=== PATIENT | female | born 1985 | race Caucasian/White ===

== ENCOUNTER → 2016-10-10 | Outpatient (CLI) | payer BC ==
--- NOTE | ~2016-10-10 | US85 ---
[facility] A Service of [facility] [place] & [facility] RADIOLOGY TEXT RESULTS PATIENT: ERMIAS GATICA LOCATION: SNIV : 81 UNIT #: [id number] AGE: [address]: Omar Burgess MD SEX: F ORDER DR: [id number] [address] [address] [id number] MR#: [id number] Acc #: [id number] NAME: ERMIAS GATICA : 1985 SEX: F STUDY DATE/TIME: 10/10/2016 10:38 UNIT: SNIV ROOM: STUDY DESCRIPTION: [facility] [employer] Attending Physician: Omar Burgess M.D. Referring Physician: Omar Burgess M.D. Ordering Physician: Omar Burgess M.D. Primary Care Physician: Omar Burgess M.D. MEDICAL IMAGING REPORT This report is preliminary unless electronic signature is present. EXAM Right lower extremity Doppler venous ultrasound, 10/10/2016 HISTORY Right lower extremity swelling/edema for 1 year. Patient states that cat scratched her leg and clear liquid came out instead of blood. COMPARISON None FINDINGS The technologist states this study was technically challenging secondary to patient's body habitus. As such, the peroneal veins are not optimally visualized on this examination. However, the remainder of the right lower extremity veins demonstrate normal flow, compressibility and/or augmentation without evidence of deep venous thrombosis. IMPRESSION 1. The peroneal veins are not satisfactorily visualized on this examination. Study is limited secondary to the patient's body habitus. 2. The remainder of the visualized right lower extremity veins demonstrate no evidence of deep venous thrombosis. Dictated by... Camille Walker M.D. THIS IS AN ELECTRONICALLY VERIFIED REPORT Camille Walker M.D. at 10/13/2016 8:36 AM Finn TD: 10/10/2016 15:17 [facility] A Service of [facility] [place] & [facility] RADIOLOGY TEXT RESULTS PATIENT: ERMIAS GATICA LOCATION: [facility] : 81 UNIT #: [id number] AGE: [address]: Omar Burgess MD SEX: F ORDER DR: JOB #: [id number] MEDICAL IMAGING REPORT Page 1 of 1
== END | disposition home or self-care (01) ==
LOC: SNIV 10:08
DX: R60.0 Localized edema (principal)
CPT/HCPCS: 93971